=== PATIENT | female | born 1980 | race African-American/Black ===

== ENCOUNTER 2018-07-30 14:53 | Emergency (ER) | payer MEDICAID ==
[~2018-07-30] VITALS: Ht 170.2 cm; Wt 77.1 kg
[2018-07-30 15:05] VITALS: BP 120/64
[2018-07-30] MEDS ORDERED: LEVOFLOXACIN 500 MG TAB PO ONE (16:30)
[2018-07-30] MEDS ORDERED: PROMETHAZINE W/CODEINE 5 ML ORAL SYRUP PO ONE (16:30)
== END 2018-07-30 16:50 | disposition home or self-care (01) ==
LOC: ER 14:53
DX: J06.9 Acute upper respiratory infection, unspecified (principal); F17.210 Nicotine dependence, cigarettes, uncomplicated

== ENCOUNTER 2018-11-21 20:59 | Inpatient (IN) | payer MEDICAID | END 2018-11-27 18:45 | disposition home or self-care (01) | LOC: ER 20:59 → OVERFLOW 11-22 09:18 → WEST WING 11-22 14:41 | PROC: 0DJD8ZZ Inspection of Lower Intestinal Tract, Via Natural or Artificial Opening Endoscopic (ICD-10-PCS; principal; 2018-11-24 15:55) | PROC: 0DB68ZX Excision of Stomach, Via Natural or Artificial Opening Endoscopic, Diagnostic (ICD-10-PCS; 2018-11-24 15:55) | PROC: 0DB88ZX Excision of Small Intestine, Via Natural or Artificial Opening Endoscopic, Diagnostic (ICD-10-PCS; 2018-11-24 15:55) | PROC: 0FT44ZZ Resection of Gallbladder, Percutaneous Endoscopic Approach (ICD-10-PCS; 2018-11-24 15:55) | DX: K80.10 Calculus of gallbladder with chronic cholecystitis without obstruction (principal); D62 Acute posthemorrhagic anemia; K29.70 Gastritis, unspecified, without bleeding; K21.9 Gastro-esophageal reflux disease without esophagitis; K92.2 Gastrointestinal hemorrhage, unspecified; D50.9 Iron deficiency anemia, unspecified; E66.9 Obesity, unspecified; R07.89 Other chest pain; K44.9 Diaphragmatic hernia without obstruction or gangrene ==

== ENCOUNTER 2019-04-24 13:53 | Emergency (ER) | payer MEDICAID ==
[~2019-04-24] VITALS: Ht 172.7 cm; Wt 93.4 kg
[2019-04-24 14:08] VITALS: BP 122/56
== END 2019-04-24 14:40 | disposition home or self-care (01) ==
LOC: ER 13:53
DX: J03.90 Acute tonsillitis, unspecified (principal); M54.6 Pain in thoracic spine; R42 Dizziness and giddiness; F17.210 Nicotine dependence, cigarettes, uncomplicated

== ENCOUNTER 2019-05-13 20:15 | Emergency (ER) | payer MEDICAID ==
[~2019-05-13] VITALS: Ht 172.7 cm; Wt 97.3 kg
[2019-05-13 22:02] LABS: Basophils # (auto) 0 uL; Eosinophils # (auto) 0.1 uL; Eosinophils % (auto) 1.6 % (0.0-7.0); Monocytes # (auto) 0.6 uL; Nucleated Red Blood Cells % 0.1 %
[2019-05-13 22:03] LABS: Basophils % (auto) 0.4 % (0.0-2.0); Hematocrit 32.1 % (36.0-46.0); Hemoglobin 10.2 g/dL (12.2-16.2); Lymphocytes # (auto) 1.2 uL; Lymphocytes % (auto) 17.4 % (10.0-50.0); Mean Corpuscular Hemoglobin 22.7 pg (28.0-32.0); Mean Corpuscular Hgb Conc. 31.8 g/dL (32.0-36.0); Mean Corpuscular Volume 71.4 fL (80.0-100.0); Monocytes % (auto) 8.5 % (0.0-12.0); Neutrophils # (auto) 4.8 uL; Neutrophils % (auto) 72.1 % (37.0-80.0); Platelet Count (auto) 227 10^3/uL (140-450); White Blood Cell 6.7 10^3/uL (4.4-10.8)
[2019-05-13 22:14] LABS: Red Cell Distribution Width 24.3 % (11.8-14.3)
[2019-05-13 22:24] LABS: Calcium 8.8 mg/dL (8.5-10.1); Potassium 3.8 mmol/L (3.5-5.1)
[2019-05-13 22:28] LABS: BUN/Creatinine Ratio 15.2; Bilirubin, Total 0.2 mg/dL (0.2-1.0); Total Protein 7.6 g/dL (6.4-8.2)
[2019-05-14 03:43] LABS: Urine Bacteria FEW /hpf (None Seen); Urine Blood 3+ /uL (Negative); Urine Specific Gravity 1.015 (1.001-1.035); Urine WBC 22 /hpf (0 - 5)
[2019-05-14] MEDS ORDERED: cefTRIAXone 1GM/50ML D5W 50 ML IV ONE (08:45)
[2019-05-14 12:04] VITALS: BP 108/61
== END 2019-05-14 12:32 | disposition home or self-care (01) ==
LOC: ER 20:18
DX: O99.011 Anemia complicating pregnancy, first trimester (principal); O23.41 Unspecified infection of urinary tract in pregnancy, first trimester; Z90.49 Acquired absence of other specified parts of digestive tract; Z3A.10 10 weeks gestation of pregnancy
CPT/HCPCS: 36415; 76801; 80053; 81001; 81025; 82962; 84702; 85025; 96365; 99284; J0696